=== PATIENT | male | born 1970 | race American Indian/Alaskan Native ===

== ENCOUNTER 2021-05-04 09:08 | Emergency (ER) | payer OTHER ==
[2021-05-04 09:27] VITALS: BP 134/84
--- NOTE | 2021-05-04 10:49 | XRay Report ---
CHEST 2 VIEWS INDICATION / CLINICAL INFORMATION: cough fever cold sweats. COMPARISON: None available. FINDINGS: SUPPORT DEVICES: None. HEART / MEDIASTINUM: No significant abnormality. LUNGS / PLEURA: There are patchy airspace opacities in the mid lower lung zones bilaterally suspiciou s for pneumonia including atypical pneumonia No pneumothorax. ADDITIONAL FINDINGS: No significant additional findings. IMPRESSION: 1. There are bilateral airspace opacities in the mid lower lung zone suspicious for pneumonia includi ng atypical pneumonia. Signer Name: Quinn Bae MD Signed: 05/04/2021 10:44 AM Workstation Name: [id number]
[2021-05-04 11:18] LABS: Bilirubin,Urine NEG (Negative); Blood,Urine MOD (Negative); Color,Urine Yellow (Yellow); Mucus,Urine 1+ /HPF
[2021-05-04 11:35] LABS: Eosinophils % (Auto) 0.1 % (0.0-4.3); Monocytes # (Auto) 0.5 K/mm3 (0.0-0.8)
[2021-05-04 11:43] LABS: Basophils % (Auto) 0.6 % (0.0-1.8); Hemoglobin 13.7 gm/dl (11.8-15.2); Lymphocytes # (Auto) 1.2 K/mm3 (1.2-5.4); Lymphocytes % (Auto) 24.4 % (13.4-35.0); Mean Corpuscular HGB Conc 35 % (32-34); Mean Corpuscular Volume 90 fl (84-94); Platelet Count 323 K/mm3 (140-440); Red Blood Count 4.32 M/mm3 (3.65-5.03); Red Cell Distribution Width 13.5 % (13.2-15.2)
[2021-05-04 11:53] LABS: Alanine Aminotransferase 21 units/L (7-56); Albumin 4.2 g/dL (3.9-5); BUN/Creatinine Ratio 11; Blood Urea Nitrogen 11 mg/dL (9-20); Calcium 8.6 mg/dL (8.4-10.2); Hemolysis Index 8
--- NOTE | 2021-05-04 12:02 | Emergency Department Report ---
ED General Adult HPI - General Chief complaint: Dyspnea/Respdistress Stated complaint: COLDSWEATS Time Seen by Provider: 05/04/21 10:08 Source: patient Mode of arrival: Ambulatory Limitations: No Limitations - History of Present Illness Initial comments: 50-year-old -Burm[place] male presents to the emergency room complaining of cold sweats fever cough diarrhea for 1 week. Patient states he got Covid test a week ago which was negative. Patient states he had some coughing with posttussive emesis a week ago. Continues to cough. Patient denies any recent travels denies any sick contact. Patient denies any difficulty breathing no shortness of breath no chest pain but does admit to a cough fever cold sweats and chills. Patient states he does not smoke cigarettes drinks alcohol occasionally does smoke marijuana but does no illicit drugs. Patient denies any past medical history reports he does not take any medications on a daily basis and has no known drug allergies. Onset/Timin -: week(s) Severity scale (0 -10): 7 Consistency: constant Improves with: none Associated Symptoms: cough, diaphoresis, fever/chills, loss of appetite, weakness. denies: chest pain, nausea/vomiting, rash, shortness of breath, syncope Treatments Prior to Arrival: none - Related Data Previous Rx's Medication Instructions Recorded Last Taken Type Ibuprofen [Motrin 600 MG tab] 600 mg PO Q8H PRN #30 tablet 10/22/16 Unknown Rx Sulfamethoxazole/Trimethoprim 1 each PO BID #20 tablet 10/22/16 Unknown Rx [Bactrim DS TAB] Azithromycin [Zithromax Z-LEÓN] 0 mg PO DAILY #6 tab 05/04/21 Unknown Rx Ibuprofen [Motrin 800 MG tab] 800 mg PO Q8HR PRN #30 tablet 05/04/21 Unknown Rx Allergies Allergy/AdvReac Type Severity Reaction Status Date / Time No Known Allergies Allergy Unverified 10/22/16 17:18 ED Review of Systems ROS: Stated complaint: COLDSWEATS Other details as noted in HPI Comment: All other systems reviewed and negative ED Past Medical Hx - Past Medical History Previous Medical History?: No - Surgical History Past Surgical History?: Yes Additional Surgical History: knee surgery - Social History Smoking Status: Never Smoker Substance Use Type: Alcohol - Medications Home Medications: Home Medications Medication Instructions Recorded Confirmed Last Taken Type Ibuprofen [Motrin 600 MG tab] 600 mg PO Q8H PRN #30 tablet 10/22/16 Unknown Rx Sulfamethoxazole/Trimethoprim 1 each PO BID #20 tablet 10/22/16 Unknown Rx [Bactrim DS TAB] Azithromycin [Zithromax Z-LEÓN] 0 mg PO DAILY #6 tab 05/04/21 Unknown Rx Ibuprofen [Motrin 800 MG tab] 800 mg PO Q8HR PRN #30 tablet 05/04/21 Unknown Rx ED Physical Exam - General Limitations: No Limitations ED Course Vital Signs 05/04/21 09:26 Temperature 99.2 F Pulse Rate 71 Respiratory 18 Rate Blood Pressure 134/84 [Right] O2 Sat by Pulse 98 Oximetry ED Medical Decision Making - Lab Data Result diagrams: 05/04/21 11:11 - Radiology Data Radiology results: report reviewed [facility] [address] [place] [address] XRay Report Signed Patient: TOPHER ALLEN II MR#: [id number] : 1970 Acct:[id number] Age/Sex: 50 / M ADM Date: 05/04/21 Loc: ED Attending Dr: Ordering Physician: CASPER RIOS Date of Service: 05/04/21 Procedure(s): XR chest routine 2V Accession Number(s): [id number] cc: CASPER RIOS Fluoro Time In Minutes: CHEST 2 VIEWS INDICATION / CLINICAL INFORMATION: cough fever cold sweats. COMPARISON: None available. FINDINGS: SUPPORT DEVICES: None. HEART / MEDIASTINUM: No significant abnormality. LUNGS / PLEURA: There are patchy airspace opacities in the mid lower lung zones bilaterally suspicious for pneumonia including atypical pneumonia No pneumothorax. ADDITIONAL FINDINGS: No significant additional findings. IMPRESSION: 1. There are bilateral airspace opacities in the mid lower lung zone suspicious for pneumonia including atypical pneumonia. Signer Name: Quinn Bae MD Signed: 05/04/2021 10:44 AM Workstation Name: [id number] Transcribed By: Dictated By: Quinn Bae MD Electronically Authenticated By: Quinn Bae MD Signed Date/Time: 05/04/21 104 DD/ 43 TD/TT: Print Cancel - Medical Decision Making 50-year-old -Burm[place] male presents to the emergency room complaining of cold sweats fever cough diarrhea for 1 week. Patient states he got Covid test a week ago which was negative. Patient states he had some coughing with posttussive emesis a week ago. Continues to cough. Patient denies any recent travels denies any sick contact. Patient denies any difficulty breathing no shortness of breath no chest pain but does admit to a cough fever cold sweats and chills. Patient states he does not smoke cigarettes drinks alcohol occasionally does smoke marijuana but does no illicit drugs. Patient denies any past medical history reports he does not take any medications on a daily basis and has no known drug allergies. Critical care attestation.: If time is entered above; I have spent that time in minutes in the direct care of this critically ill patient, excluding procedure time. ED Disposition Clinical Impression: Atypical pneumonia Hematuria Qualifiers: Hematuria type: unspecified type Qualified Code(s): R31.9 - Hematuria, unspecified Disposition: TO HOME OR SELFCARE Is pt being admited?: No Does the pt Need Aspirin: No Condition: Stable Additional Instructions: X-ray is concerning Covid pneumonia. Urinalysis concerning for blood. Complete your antibiotics ibuprofen as needed for fever and body aches. Is very important that you follow-up with a urologist I am referring to Dr. Parikh urologist and Dr. To Merino primary care provider. Please quarantine for 1 more week. I recommend for you to get tested for Covid. Increase your fluid intake. Your symptoms appear most consistent with a nonspecific viral syndrome. However, given this current pandemic, COVID-19 is in the differential of possibilities. Despite your previous negative COVID-19 test, I do recommend re peat outpatient Covid 19 testing. In the meantime, isolate/quarantine yourself and stay away from anyone who is elderly, immunocompromised or chronically ill. You can use ibuprofen every 6-8 hours and Tylenol every 4-8 hours, using the dosing on the back of the bottle, as needed for any fever or body aches. Return to the emergency department with any worsening of your symptoms, development of chest pain or shortness of breath, or with any acute distress. . Prescriptions: Ibuprofen [Motrin 800 MG tab] 800 mg PO Q8HR PRN #30 tablet PRN Reason: Pain , Severe (7-10) Azithromycin [Zithromax Z-LEÓN] 0 mg PO DAILY #6 tab Referrals: PRIMARY CARE, [Primary Care Provider] - 3-5 Days VERN GORE MD [Staff Physician] - 3-5 Days BALDO PARIKH MD [Staff Physician] - 3-5 Days Forms: Work/School Release Form(ED)
== END 2021-05-04 12:17 | disposition home or self-care (01) ==
LOC: ED 09:08
DX: J18.9 Pneumonia, unspecified organism (principal); R31.9 Hematuria, unspecified; Z79.899 Other long term (current) drug therapy; Z98.890 Other specified postprocedural states
CPT/HCPCS: 36415; 71046; 80053; 81001; 85025